=== PATIENT | female | born 1990 | race Caucasian/White ===

== ENCOUNTER 2023-02-21 08:36 | Outpatient (OUT) | payer OTHER, SELFPAY ==
--- NOTE | 2023-02-21 08:39 | US_ITS ---
[address] [address] Patient Name: DYAN BRIONES MRN: [id number] date: 1990 Sex: F Assigned Patient Location: US Current Patient Location: US Accession/Order Number: [id number] Exam Date: 02/21/2023 08:40 Report Date: 02/21/2023 17:57 At the request of: OSMANY KRUEGER Procedure: US OB >= 14 weeks Fetus PROCEDURE: US OB >= 14 weeks Fetus HISTORY: MISSED MENSES COMPARISON: None. TECHNIQUE: Transabdominal sonographic examination was performed for obstetrical and evaluation. FINDINGS: Number: 1 Heart Rate: 153.0 bpm H.B. /min Amniotic Fluid Volume: Subjectively normal Placental Location: Anterior BIOMETRY: BPD: 3.6 cm 17 weeks 1 days 43% HC: 13.8 cm 17 weeks 1 days , 34% AC:11.3 cm 17 weeks 1 days , 42% FL: 2.2 cm 16 weeks 5 days , 23% EFW: 174.7 grams , 6 ounces, 24% FL/AC: 19.8 FL/BPD: 61.3 HC/AC: 1.2 GESTATIONAL AGE: Age by EDC: 17 weeks 2 days MAIN by EDC: 07/30/2023 Ultrasound Age: 17 weeks 0 days Ultrasound MAIN: 08/01/2023 US/US OB >= 14 weeks Fetus IMPRESSION: Viable intrauterine gestation measuring 17 weeks 0 days *Reference: [facility] Practice Guideline for the performance of Obstetric Ultrasound Examinations, January 19, 2007. Electronically authenticated by: ROSEMARIE GARCIA Date: 02/21/2023 17:57
== END 2023-02-21 08:37 | disposition home or self-care (01) ==
LOC: US 08:36
PROVIDERS: Visit Provider Obstetrics & Gynecology
DX: Z34.92 Encounter for supervision of normal pregnancy, unspecified, second trimester (principal); N92.6 Irregular menstruation, unspecified; Z3A.17 17 weeks gestation of pregnancy
CPT/HCPCS: 76815

== ENCOUNTER 2024-06-01 08:52 | Outpatient (OUT) | payer OTHER, SELFPAY ==
[2024-06-01 09:15] LABS: Basophils Percent Auto 0.4 % (0.2-2.0); Eosinophils Absolute Auto 0.2 10^3/uL (0.0-0.7); Eosinophils Percent Auto 3.4 % (0.9-7.0); Hematocrit 44.4 % (36.0-48.0); Hemoglobin 14.3 g/dL (12.0-16.0); Lymphocytes Absolute Auto 1.7 10^3/uL (1.2-3.8); Lymphocytes Percent Auto 25.7 % (20.5-60.0); Mean Corpuscular HGB Conc 32.2 g/dL (29.9-35.2); Mean Corpuscular Hemoglobin 29.5 pg (26.7-34.0); Mean Corpuscular Volume 91.5 fL (81.0-99.0); Mean Platelet Volume 11.5 fL (9.5-13.5); Monocytes Absolute Auto 0.5 10^3/uL (0.3-0.8); Neutrophils Absolute Auto 4.3 10^3/uL (1.4-6.5); Neutrophils Percent Auto 63.5 % (43.0-75.0); Platelet Count 260 10^3/uL (150-450); Red Blood Count 4.85 10^6/uL (4.20-5.40); Red Cell Distribution Width 12.8 % (11.0-15.0); White Blood Count 6.7 10^3/uL (4.0-11.0)
--- OUTSIDE RECORDS SUMMARY | 2024-06-01 09:15 | XMS_ITS | CCD ---
Author Organization [facility] Care Team Providers Care Group Director Name Role Phone ZELONIS, ANIKA A Unavailable Unavailable BAAKLINI, CARLOTA Unavailable Unavailable DUMAIS, VALORIE Unavailable Unavailable ZELONIS, ANIKA A Unavailable Unavailable BAAKLINI, CARLOTA Unavailable Unavailable ZELONIS, ANIKA A Unavailable Unavailable BAAKLINI, CARLOTA Unavailable Unavailable ZELONIS, ANIKA A Unavailable Unavailable BAAKLINI, CARLOTA Unavailable Unavailable BAAKLINI, CARLOTA Unavailable Unavailable ZELONIS, ANIKA A Unavailable Unavailable BAAKLINI, CARLOTA Unavailable Unavailable ZELONIS, ANIKA A Unavailable Unavailable BAAKLINI, CARLOTA Unavailable Unavailable ZELONIS, ANIKA A Unavailable Unavailable BAAKLINI, CARLOTA Unavailable Unavailable ZELONIS, ANIKA A Unavailable Unavailable BAAKLINI, CARLOTA Unavailable Unavailable ZELONIS, ANIKA A Unavailable Unavailable BAAKLINI, CARLOTA Unavailable Unavailable LUCHETTI, JUMANA Unavailable Unavailable ZELONIS, ANIKA A Unavailable Unavailable BAAKLINI, CARLOTA Unavailable Unavailable ZELONIS, ANIKA A Unavailable Unavailable BAAKLINI, CARLOTA Unavailable Unavailable ZELONIS, ANIKA A Unavailable Unavailable Ross Woods Attending Unavailable Baaklini, Carlota C Primary Care Unavailable Baaklini, Carlota C Consulting Unavailable WillauwaAlessandroa Attending Unavailable No Family Physician Primary Care Unavailable No Family Physician Consulting Unavailable BACHUWA, ASTRID Admitting Unavailable WILLAUWA, ASTRID Attending Unavailable Baaklini, Carlota C Unavailable Unavailable Wendie Mcpherson Unavailable Unavailable Baaklini, Carlota C Unavailable Unavailable Donna Coronado Unavailable Unavailable Unavailable Unavailable Unavailable Raheel Quesada Unavailable Unavailable Baaklini, Carlota C Unavailable Unavailable Tata Cortez Unavailable Unavailab le Tata Cortez Unavailable Unavail able Donna Coronado Unavailable Unavailable Baaklini, Carlotajammie Cueto Unavailable Unavailab le Tata Cortez Unavailable Unavailable Unavailable Tata Cortez Unavailable Mabel Tuttle Unavailable Tata Cortez Unavailable Unavail able Ameena Sanchez Attending Unavailable Ameena Sanchez Referring Unavailable Dr. Tata Cortez Primary Care U navailable GENERIC PROVIDER, NO ASSIGNED PCP Primary Care Unavailable AMEENA SANCHEZ Referring Unavailable TATA CORTEZ Primary Care Unavail able Unavailable Primary Care Provider UnavailGORAN Ernst Attending Unavailable Allergies Allergy Classification Reported Allergen(s) Allergy Type Date of Onset Reaction(s) Facility Soy (9 sources) soybean Food Allergy Unknown [facility] [address] M Work Phone: Comment on above: cystic acne Unclassified (1 source) Dairy Products Other [facility] Comment on above: cystic acne (8 sources) Animal dander - Cats allergy to substance [facility] Work Phone: (6 sources) soybean allergy to substance [facility] [address] [facility] Work Phone: (14 sources) Dairy allergy to substance [facility] [address] [facility] Work Phone: (1 source) ALLERGIES NOT ON FILE; Translations: [ALLERGIES NOT ON FILE] Propensity to adverse reactions (disorder) [facility] Repository (3 sources) Lactase / Lactobacillus acidophilus Drug Allergy 2 [facility] (3 sources) Levonorgestrel-Et hinyl Estrad Drug Intolerance 5 [facility] (3 sources) Soybean-Containin g Drug Products Drug Intolerance 2 [facility] Medications Completed/Discontinued Medications Medication Drug Class(es) Dates Sig (Normalized) Sig (Original) Allergy TBCR (4 sources) Allergy TBCR Quantity: 0 Refills: 0 Ordered: 04-Jan-2019 DO Active Chlorpheniramine (1 source) Histamine-1 Receptor Antagonist Allergy TBCR Refills: 0 Active estradiol 0.1 mg/ml vaginal cream (1 source) Estrogen Start: 10-20-2020 Estradiol 0.1 MG/GM Vaginal Cream Insert 1 gram vaginally nightly x 2 weeks. Then insert 1 gram 2 nights per week thereafter. Quantity: 1 Refills: 0 Ordered: 20-Oct-2020 Magalis Hall MD Start : 20-Oct-2020 Active Magnesium (8 sources) Start: 03-31-2018 Magnesium 400 MG Oral Tablet Quantity: 0 Refills: 0 Ordered: 31-Mar-2018 DO Start : 31-Mar-2018 Active Start: 03-31-2018 Magnesium 400 MG Oral Tablet Refills: 0 Start : 31-Mar-2018 Active Complete 14-0.4 MG Oral Tablet (2 sources) Start: 04-22-2017 take 1 tablet by mouth once daily Complete 14-0.4 MG Oral Tablet TAKE 1 TABLET DAILY. Quantity: 30 Refills: 6 Carlota Clark MD Start : 22-Apr-2017 Active Complete 14-0.4 MG Oral Tablet (4 sources) Start: 04-22-2017 take 1 tablet by mouth once daily Complete 14-0.4 MG Oral Tablet TAKE 1 TABLET DAILY. Quantity: 30 Refills: 6 Ordered: 22-Apr-2017 Carlota Clark MD Start : 22-Apr-2017 Active MV-Min-Fe Fum-FA-DHA ( 1 PO) (3 sources) End: 05-27-2024 MV-Min-Fe Fum-FA-DHA ( 1 PO) Take by mouth. 05/27/2024 Discontinued MV-Min- Fe Fum-FA-DHA ( 1 PO) Take by mouth. Active Unspecified Medication (7 sources) Unspecified Medi cation Takes a variety of vitamin supplements Quantity: 0 Refills: 0 Ordered: 04-Jan-2019 DO Active Unspecified Medi cation Takes a variety of vitamin supplements Refills: 0 Active NEGATED: Highlighted row has not occurred!No Current Medications (1 source) No Current Medic ations Problems Active Problems Problem Classification Problem Date Documented Da te Episodic/Chronic Abdominal hernia (20 sources) Umbilical hernia; Translations: [Epigastric hernia] Episodic Abdominal pain (2 sources) Pain in female pelvis; Translations: [Pelvic and perineal pain] 05-27-2024 Episodic Acquired foot deformities (7 sources) Flat foot [pes planus] (acquired), right foot; Translations: [Acquired pes planus] Episodic Attention-deficit conduct and disruptive behavior disorders (1 source) Attention deficit hyperactivity disorder, predominantly inattentive type; Translations: [Attention deficit disorder without hyperactivity] Chronic Complications of surgical procedures or medical care (1 source) Stitch abscess; Translations: [Other postoperative infection] Episodic Contraceptive and procreative management (2 sources) General counseling on initiation of other contraceptive measures; Translations: [Contraceptives] Episodic Disorders usually diagnosed in infancy childhood or adolescence (7 sources) Other specified behavioral and emotional disorders with onset usually occurring in childhood and adolescence; Translations: [Attention deficit hyperactivity disorder, predominantly inattentive type] Chronic Malaise and fatigue (6 sources) Fatigue; Translations: [Other malaise and fatigue] Chronic Malaise and fatigue (1 source) Fatigue; Translations: [Chronic fatigue] Episodic Menopausal disorders (3 sources) Atrophic vaginitis; Translations: [Postmenopausal atrophic vaginitis] Chronic Menstrual disorders (4 sources) Irregular periods; Translations: [Irregular menstruation, unspecified] 05-27-2024 Chronic Other complications of ; puerperium affecting management of mother (2 sources) Unspecified disorders of ; Translations: [Unspecified disorders of ([facility])] Onset: 09-01-2023 Episodic Other connective tissue disease (8 sources) Foot pain; Translations: [Pain in limb] Episodic Other connective tissue disease (8 sources) Personal history of arthritis; Translations: [Arthritis] Episodic Other ear and sense organ disorders (1 source) Otalgia; Translations: [Otalgia] Episodic Other gastrointestinal disorders (7 sources) Chronic constipation; Translations: [Constipation, unspecified] Episodic Other lower respiratory disease (1 source) Cough; Translations: [Cough] Episodic Other non-traumatic joint disorders (8 sources) Hip pain; Translations: [Pain in joint, pelvic region and thigh] Episodic Other skin disorders (8 sources) Acne; Translations: [Other acne] Episodic Other skin disorders (14 sources) H/O: skin disorder; Translations: [Personal history of other infectious and parasitic diseases] Resolved: 11-22-2019 Episodic Comment on above: responding well to A ldactone from Dr Villarreal,cyber systems engineer; Other upper respiratory disease (8 sources) Allergic rhinitis; Translations: [Allergic rhinitis, cause unspecified] Chronic Other upper respiratory infections (1 source) Acute sinusitis; Translations: [Acute sinusitis] Episodic Prolonged (1 source) Gestation period, 41 weeks; Translations: [Post term , unspecified as to episode of care or not applicable] 09-21-2020 Episodic Residual codes; unclassified (1 source) H/O: Disorder; Translations: [History of acne] Episodic Residual codes; unclassified (7 sources) H/O: hemorrhage; Translations: [ with other poor obstetric history] Episodic Residual codes; unclassified (6 sources) History of headache; Translations: [Personal history of other specified diseases] Episodic Spondylosis; intervertebral disc disorders; other back problems (14 sources) Chronic low back pain; Translations: [Backache] Episodic Unclassified (2 sources) NORMAL PREG N91.1 [id number] Onset: 03-26-2018 Unclassified (2 sources) IOL 09-21-2020 Comment on above: IOL Unclassified (1 source) 41 weeks gestation of 09-21-2020 Urinary tract infections (1 source) Urinary tract infectious disease; Translations: [UTI (urinary tract infection)] Episodic Past or Other Problems Problem Classification Problem Date Documented Da te Episodic/Chronic Acquired foot deformities (1 source) Acquired pes planus; Translations: [Acquired pes planus of both feet] Asthma (8 sources) Extrinsic asthma, unspecified; Translations: [Extrinsic Asthma With Allergic Rhinitis] Resolved: 09-21-2012 Chronic Genitourinary congenital anomalies (7 sources) H/O: urinary anomaly; Translations: [Personal history of unspecified urinary disorder] Resolved: 11-22-2019 Episodic Genitourinary symptoms and ill-defined conditions (9 sources) Genitourinary tract hemorrhage; Translations: [Dysuria] Resolved: 11-22-2019 Episodic Immunizations and screening for infectious disease (6 sources) Patient encounter status; Translations: [Screening examination for venereal disease] Resolved: 11-22-2019 Episodic Other connective tissue disease (2 sources) Separation of muscle (nontraumatic), other site; Translations: [Separation of muscle (nontraumatic), other site] Onset: 11-12-2016 Episodic Other connective tissue disease (8 sources) Pain in toe; Translations: [Pain in limb] Resolved: 11-22-2019 Episodic Other female genital disorders (7 sources) Abnormal uterine bleeding; Translations: [Unspecified disorders of menstruation and other abnormal bleeding from female genital tract] Resolved: 11-22-2019 Chronic Other female genital disorders (7 sources) Vaginal discharge; Translations: [Other specified complications of , antepartum condition or complication] Resolved: 11-22-2019 Episodic Other gastrointestinal disorders (7 sources) Constipation; Translations: [Other current conditions classifiable elsewhere of mother, antepartum condition or complication] Resolved: 11-22-2019 Episodic Other lower respiratory disease (7 sources) H/O: respiratory disease; Translations: [Personal history of other diseases of respiratory system] Resolved: 11-22-2019 Episodic Comment on above: Added by Problem Giselle rk Sharlene; 2012-06-16; Moved to Suppressed Mar 13 2013 9:03PM; Other nervous system disorders (7 sources) H/O: ear disorder; Translations: [Personal history of other disorders of nervous system and sense organs] Resolved: 11-22-2019 Episodic Other and delivery including normal (12 sources) ; Translations: [ care status] Onset: 01-21-2023 Episodic Other skin disorders (8 sources) Skin lesion; Translations: [Unspecified disorder of skin and subcutaneous tissue] Resolved: 11-22-2019 Episodic Otitis media and related conditions (8 sources) Otitis media; Translations: [Unspecified otitis media] Resolved: 11-22-2019 Episodic Residual codes; unclassified (7 sources) H/O: ; Translations: [Personal history of other genital system and obstetric disorders] Resolved: 11-22-2019 Episodic Short gestation; low weight; and growth retardation (3 sources) Nxtks-qoc-vpaom baby; Translations: [ small for gestational age, unspecified weight] Onset: 05-05-2023 05-05-2023 Episodic Unclassified (2 sources) Patient encounter status; Translations: [Screening for STD (sexually transmitted disease)] Unclassified (2 sources) History of headache; Translations: [History of headache] Unclassified (7 sources) History of clinical finding in subject; Translations: [History of cough] Resolved: 11-22-2019 Unclassified (1 source) Mother currently breast-feeding; Translations: [Breast feeding status of mother] NEGATED: Highlighted row has not occurred!Residual codes; unclassified (13 sources) Disease Episodic Results Test Name Value Interpretation Reference Range Facility HCG ( test) Ql (U)o n 05-27-2024 Interpretation and review of laboratory results Normal [facility] Preg Test, Ur Negative Negative [facility] URINE CULTURE,BACTERIALon URINE CULTURE,BACTERIAL PATIENT: DYNA BRIONES LOCATION: [facility] BILL#: [id number] : 88 AGE: SEX: F ORDERED BY: AMEENA SANCHEZ SOURCE: URINE COLLECTED: 01/08/23 15:25 ANTIBIOTICS AT DAILY.: RECEIVED : 01/09/23 09:55 SITE: Unspecified R E S U L T S URINE CULTURE,BACTERIAL FINAL 01/10/23 08:35 NO SIGNIFICANT GROWTH. Normal [facility] Comment on above: Performed By: #### U [facility] #### [facility] [address] [place] [address] Follow Up (General Surgery)o n 11-05-2021 Follow Up (General Surgery) Diagnoses/Problems Postoperative stitch abscess (998.59) (T81.41XA) Orders Postoperative stitch abscess Follow-up PRN Outpatient Follow-up Status: Active Requested for: [id number] Ordered Stat;For: Postoperative stitch abscess; Ordered By: Raheel Quesada Performed: Due: [id number] Patient Discussion/Summary Dyan Briones is a 31F with s/p open incarcerated epigastric hernia repair 07/11/17 presenting to clinic for incisional pain. Stitch abscess found on exam and Prolene stitch removed using local anesthetic. Patient tolerated the procedure well. Patient advised to return to office if she has another abscess or if there are any signs of Infection. Patient discussed and seen with Dr. Quesada. Adriane Greenberg, MS4 Provider Impressions Dyan Briones is a 31F with s/p open incarcerated epigastric hernia repair 07/11/17 presenting to clinic for incisional pain. Stitch abscess found on exam and Prolene stitch removed using local anesthetic. Patient tolerated the procedure well. Patient advised to return to office if she has another abscess or if there are any signs of Infection. Patient discussed and seen with Dr. Quesada. Adriane Greenberg, MS4 History of Present Illness Dyan Briones is a 31F with s/p open incarcerated epigastric hernia repair 07/11/17 presenting to clinic for incisional pain. She had a stitch abscess in 2018 that was removed in office. She had another abscess in 2020 while 8 mos with attempted removal but unable to due to discomfort. The abscess is painful when touched, minimal discharge, no warmth, no skin changes. She denies fever. Active Problems Acne (706.1) (L70.9) Acquired pes planus of both feet (734) (M21.41,M21.42) Allergic rhinitis (477.9) (J30.9) Attention deficit disorder without hyperactivity (314.00) (F98.8) Back pain (724.5) (M54.9) Chronic constipation (564.00) (K59.09) Chronic fatigue (780.79) (R53.82) Chronic low back pain (724.2,338.29) (M54.50,G89.29) Epigastric hernia (553.29) (K43.9) Foot pain, bilateral (729.5) (M79.671,M79.672) Hernia, umbilical (553.1) (K42.9) Hip pain, chronic (719.45,338.29) (M25.559,G89.29) History of hemorrhage, currently in third trimester (V23.49) (O09.293) care (V22.1) (Z34.90) Umbilical hernia without obstruction and without gangrene (553.1) (K42.9) Vaginitis, atrophic (627.3) (N95.2) Past Medical History History of Abnormal uterine and vaginal bleeding (626.9) (N93.9) Resolved Date: 22 Nov 2019 History of Arthritis (V13.4) History of Chronic pain of toes of both feet (729.5,338.29) (M79.674,M79.675,G89.29) Resolved Date: 22 Nov 2019 History of Constipation during in third trimester (648.93,564.00) (O99.613,K59.00) Resolved Date: 22 Nov 2019 History of Extrinsic Asthma With Allergic Rhinitis (493.00) Resolved Date: 21 Sep 2012 History of acne (V13.3) (Z87.2) responding well to Aldactone from Dr Villarreal,cyber systems engineer History of acute sinusitis (V12.69) (Z87.09) Resolved Date: 22 Nov 2019 Added by Problem List Migration; 2012-06-16; Moved to [facility] Mar 13 2013 9:03PM History of cough Resolved Date: 22 Nov 2019 History of dysuria (V13.00) (Z87.898) Resolved Date: 22 Nov 2019 History of ear pain (V12.49) (Z86.69) Resolved Date: 22 Nov 2019 History of headache (V13.89) (Z87.898) History of (V13.29) Resolved Date: 22 Nov 2019 History of tinea corporis (V12.09) (Z86.19) Resolved Date: 22 Nov 2019 History of urinary tract infection (V13.02) (Z87.440) Resolved Date: 22 Nov 2019 History of Otitis media of right ear (382.9) (H66.91) Resolved Date: 22 Nov 2019 History of Screening for STD (sexually transmitted disease) (V74.5) (Z11.3) Resolved Date: 22 Nov 2019 History of Skin lesion (709.9) (L98.9) Resolved Date: 22 Nov 2019 History of Vaginal discharge during in third trimester (646.83,623.5) (O26.893,N89.8) Resolved Date: 22 Nov 2019 Surgical History History of Umbilical Hernia Repair Family History Family history of Leukemia (V16.6) Family history of Diabetes Mellitus (V18.0) Family history of Leukemia (V16.6) Family history of Urinary Tract Infection Social History Former smoker (V15.82) (Z87.891) No illicit drug use Occasional alcohol use Occupation: [employer] Allergies No Known Drug Allergies Recorded By: Rosalia Bonilla; 07/01/2012 8:56:52 AM Animal dander - Cats Recorded By: Rosalia Bonilla; 07/01/2012 8:56:52 AM Dairy Recorded By: Claudia Gant; 11/22/2019 1:26:50 PM Dairy Recorded By: Opal Christopher; 01/04/2019 2:09:50 PM Soy Recorded By: Claudia Gant; 11/22/2019 1:26:50 PM Soy Recorded By: Opal Christopher; 01/04/2019 2:09:50 PM Current Meds Medication NameInstruction Allergy TBCR Estradiol 0.1 MG/GM Vaginal CreamInsert 1 gram vaginally nightly x 2 weeks. Then insert 1 gram 2 nights per week thereafter. Magnesium 400 MG Oral Tablet Complete 14-0.4 MG Or (more content not included)... Normal [employer] Tobacco Screening.on 022 Fall risk assessment a) No falls within the last year [facility] Work Phone: Tobacco use status [facility]PH[facility] b) No [facility] Work Phone: Blood Pressure Cuff Sizeon 0 11-03-2020 Blood Pressure Cuff Size Adult UK-OAHU-BSNP [place] [address] M Work Phone: No Panel Informationon 11-03 Never IQ-YCLE-IOPS [place] [address] M Work Phone: Not depressed MP-WSPC-WSW H [place] [address] M Work Phone: 2 1 XI-UNFL-GFLV [place] [address] M Work Phone: Comment on above: Q1: As much as I alw ays couldQ2: As much as I ever didQ3: No, neverQ4: Hardly everQ5: No, not muchQ6: No, I have been coping as well as everQ7: No, not at allQ8: No, not all allQ9: No, [id number]: Never LMPon 10-19-2020 Last menstrual period start date VY-PDFA-HGSQ [place] [address] M Work Phone: No Panel Informationon 10-19 Never LM-YOYT-AUMZ [place] [address] M Work Phone: Not depressed MP-[facility] [place] [address] M Work Phone: 0 1 MR-XHSP-DZNRJESSICA [place] [address] M Work Phone: Comment on above: Q1: As much as I alw ays couldQ2: As much as I ever didQ3: No, neverQ4: No, not at allQ5: No, not at allQ6: No, I have been coping as well as everQ7: No, not at allQ8: No, not all allQ9: No, [id number]: Never Coronavirus 2019 RNA by PCR, Screening Asymptomticon 09-21-2020 Coronavirus 2019 RNA by PCR, Screening Asymptomtic Not detected Normal See Below [place] [address] M Work Phone: Comment on above: SOURCE: Nasal, Nasop haryngealReference Range: Not Detected.This assay is designed to detect the RdRp gene of SARS-CoV-2 via nucleic acid amplification. A Not Detected result does not preclude COVID-19 infection since the adequacy of sample collection and/or low viral burden may result in presence of viral nucleic acids below the clinical sensitivity of this test method. Fact sheet for providers: www.fda.gov/media/145968/downloadFact sheet for patients: www.fda.gov/media/022891/downloadThis test has received FDA Emergency Use Authorization (EUA) and has been verified by [facility]. This test is only authorized for the duration of time that circumstances exist to justify the authorization of the emergency use of in vitro diagnostic tests for the detection of SARS-CoV-2 virus and/or diagnosis of COVID-19 infection under section 564(b)(1) of the Act, 21 U.S.C. 360bbb-3(b)(1), unless the authorization is terminated or revoked sooner. [facility] is certified under CLIA-88 as qualified to perform high complexity testing. Testing is performed in the [facility] laboratory located at [address] [place] [address]. Laboratory - Blood bankon ABO group Nom (Bld) [place] [id number] Work Phone: Blood group antibody screen Ql Negative [address] Work Phone: Rh immune globulin screen (Bld) [Interp] Positive [address] Work Phone: Laboratory - Hematology and Cell countson 09-21-2020 Erythrocyte distribution width (RBC) [Ratio] 13.6 % See Below [place] [id number] Work Phone: Comment on above: Reference Range: 11. 5 - 14.5 Hematocrit (Bld) [Volume fraction] 41.6 % See Below [place] [id number] Work Phone: Comment on above: Reference Range: 36. 0 - 46.0 Hemoglobin (Bld) [Mass/Vol] 13.7 g/dL See Below [address] Work Phone: Comment on above: Reference Range: 12. 0 - 16.0 MCHC (RBC) [Mass/Vol] 32.9 g/dL See Below [place] [id number] Work Phone: Comment on above: Reference Range: 32. 0 - 36.0 MCV (RBC) [Entitic vol] 92 fL 80 - 100 [place] [id number] Work Phone: Platelets (Bld) [#/Vol] 185 10*3/uL 150 - 450 [place] [id number] Work Phone: RBC (Bld) [#/Vol] 4.51 {x10E12/L} See Below [place] [id number] Work Phone: Comment on above: Reference Range: 4.0 0 - 5.20 WBC (Bld) [#/Vol] 8.1 10*3/uL 4.4 - 11.3 -[facility] [place] [address] M Work Phone: No Panel Informationon 09-21 ORDER RECD ZK-AKCU-PPCA [place] [address] Work Phone: 0.0 {/100_WBC} 0.0 - 0.0 [facility] [place] [address] Work Phone: SYPHILIS SCREENING WITH REFL EXon 09-21-2020 T. pallidum IgG+IgM IA Ql (S) Non-Reactive See Below XN-XEAE-ZICV [place] [address] Work Phone: Comment on above: SOURCE: Reference Ra nge: NONREACTIVENo significant level of Treponema pallidum antibody detected. Repeat testing in 2 to 4 weeks may be considered if early infection or incubating syphilis infection is suspected. Blood Pressure Cuff Sizeon 0 09-19-2020 Blood Pressure Cuff Size Adult [facility] [place] [address] Work Phone: No Panel Informationon 09-15 Normal [facility] [place] [address] Work Phone: Blood Pressure Cuff Sizeon 0 09-11-2020 Blood Pressure Cuff Size Adult [facility] [place] [address] Work Phone: Blood Pressure Cuff Sizeon 0 09-06-2020 Blood Pressure Cuff Size Adult [facility] [place] [address] Work Phone: CNPNon 09-06-2020 [facility] Telephone ([id number]) -- DYAN BRIONES ([id number]) 1990 F Date Time Provider Department 09/06/20 ASTRID GARZA [id number] During your visit today, we recorded the following information about you: Bryant Weiss 09/06/2020 5:03 PM Signed Pt transferred care. Please bill out her visits to the insurance we have on file. Astrid Garza MD 09/21/2020 1:59 PM Signed Please apply prepay to 08/22. Make sure to deduct $50 for a no show and put note in open pm in case she asks. Bernadette Summers 09/26/2020 9:28 AM Signed done Allergies As of Date: 09/06/2020 Noted Allergy Reaction SEASONALE (LEVONORGESTREL-ETHINYL* Date Reviewed: 02/02/2020 Reviewed by: Bernadette Summers - Fully Assessed Reason for Visit: Patient Update [1234] Prescriptions as of 07/20/2021 - blood sugar diagnostic (BLOOD GLUCOSE TEST) test strip Test sugars QID - Blood-Glucose Meter Check sugars QID - Lancets lancets Test sugars QID - Magnesium 30 mg tablet Take 30 mg by mouth twice daily. - calcium carbonate (CALCIUM 300 ORAL) Take by mouth. - PNV Cmb#60-Zpdb-Cicxe Acid ( COMPLETE) 14 mg iron- 400 mcg tab Take by mouth q 24 HR. - ZYRTEC 10 MG TAB Problem List As Of Date: 09/06/2020 (None) Encounter Status:Closed by BRYANT WEISS on 07/20/21 Normal [facility] Blood Pressure Cuff Sizeon 0 08-29-2020 Blood Pressure Cuff Size [facility] [address] [facility] Work Phone: SPINE, LUMBOSACRAL MIN 4 VIE WSon 12-20-2019 SPINE, LUMBOSACRAL MIN 4 VIEWS Patient Name: DYAN BRIONES STUDY: SPINE, LUMBOSACRAL MIN 4 VIEWS; SPINE, THORACIC, 3 VIEWS; ; 12/20/2019 9:25 am INDICATION: back pain x months, no acute injury. COMPARISON: 05/09/2017 ACCESSION NUMBER(S): [id number]; [id number] ORDERING CLINICIAN: TATA JAIMES FINDINGS: Lumbar spine: Gentle levo curve. No apparent fracture or malalignment detected. No apparent neural foraminal narrowing. Thoracic spine: No fracture. No malalignment. Vertebral body heights and disc spaces are maintained. IMPRESSION: No radiographic correlate seen to explain symptoms. Overall similar appearance of the lumbar exam to prior exams. Electronically signed by: ANGEL MORFIN MD Normal [facility] SPINE, THORACIC, 3 VIEWSon 0 12-20-2019 SPINE, THORACIC, 3 VIEWS Patient Name: DYAN BRIONES STUDY: SPINE, LUMBOSACRAL MIN 4 VIEWS; SPINE, THORACIC, 3 VIEWS; ; 12/20/2019 9:25 am INDICATION: back pain x months, no acute injury. COMPARISON: 05/09/2017 ACCESSION NUMBER(S): [id number]; [id number] ORDERING CLINICIAN: TATA JAIMES FINDINGS: Lumbar spine: Gentle levo curve. No apparent fracture or malalignment detected. No apparent neural foraminal narrowing. Thoracic spine: No fracture. No malalignment. Vertebral body heights and disc spaces are maintained. IMPRESSION: No radiographic correlate seen to explain symptoms. Overall similar appearance of the lumbar exam to prior exams. Electronically signed by: AGNEL MORFIN MD Normal [facility] Follow Up (General Surgery)o n 01-04-2019 Follow Up (General Surgery) Diagnoses/Problems Hernia, umbilical (553.1) (K42.9) Orders Hernia, umbilical Follow-up visit in 3 months Outpatient Follow-up Status: Hold For - Scheduling Requested for: [id number] Ordered Stat;For: Hernia, umbilical; Ordered By: Raheel Quesada Performed: Due: [id number] Patient Discussion/Summary Patient has a small fingertip umbilical hernia defect most likely related to her recent from which she is 2 months . There is no evidence of epigastric hernia repair recurrence. I recommended she resume full activities and I will see her in follow-up in 3-6 months up. If there is persistent hernia defect at that time we will discuss operative intervention. She will be seen in follow-up in 3-6 months. Provider Impressions Patient has a small fingertip umbilical hernia defect most likely related to her recent from which she is 2 months . There is no evidence of epigastric hernia repair recurrence. I recommended she resume full activities and I will see her in follow-up in 3-6 months up. If there is persistent hernia defect at that time we will discuss operative intervention. She will be seen in follow-up in 3-6 months. Chief Complaint FUV History of Present Illness Ms. Briones is here today for follow-up. She is s/p open incarcerated epigastric hernia repair with primary closure on 07/16/17. She reports abdominal discomfort in the same area as the prior hernia. The pain began 2 months ago after she delivered her baby. She is concerned that she has a hernia recurrence. She denies nausea, vomiting. She reports episodes of constipation since having her baby. Review of Systems Constitutional: no fever, no chills, no recent weight gain and no recent weight loss. Eyes: no loss of vision, no discharge from the eyes and no itching of the eyes. ENT: no hearing loss, no neck pain and no hoarseness. Cardiovascular: no chest pain, no palpitations and no lower extremity edema. Respiratory: no dyspnea, no dyspnea during exertion and no cough. Breast: no nipple discharge, no breast mass and no pain in breast. Gastrointestinal: abdominal pain, constipation, but no heartburn, no vomiting, no blood in stools, bowel movement frequency normal. Genitourinary: no dysuria, no hematuria and no vaginal discharge. Musculoskeletal: no arthralgias, no myalgias and no hernia. Integumentary: no rashes and no skin lesions. Neurological: no headache, no dizziness, no numbness, no tingling and no limb weakness. Psychiatric: no anxiety, no depression and no emotional problems. Endocrine: no heat or cold intolerance and no increased thirst. Hematologic/Lymphatic: no swollen glands, no tendency for easy bleeding and no tendency for easy bruising. All other systems have been reviewed and are negative for complaint. Allergies No Known Drug Allergies Recorded By: Opal Christopher; 01/04/2019 2:09:50 PM Dairy Recorded By: Opal Christopher; 01/04/2019 2:09:50 PM Soy Recorded By: Opal Christopher; 01/04/2019 2:09:50 PM Current Meds Medication NameInstruction Allergy TBCR Unspecified MedicationTakes a variety of vitamin supplements Vitals Vital Signs Recorded: [id number] 02:08PM Klyswlonigo68.8 F Heart Rate64 Ofpalngb139 Hctuniivf46 Height5 ft 3 in Kiurdq800 lb BMI Yvqioqywea18.58 BSA Calculated1.79 Physical Exam Patient appears in no apparent distress. She is afebrile with stable vital signs. Abdomen is soft nontender nondistended. Her incision is well-healed. There is a fingertip protrusion in the umbilicus consistent with a umbilical hernia. There is no appreciable super umbilical hernia defect. The Prolene sutures from her prior epigastric hernia repair are palpable under the skin. There is no overlying erythema, ecchymosis, or drainage. Signatures Electronically signed by : Raheel Quesada MD; Jan 04 2019 4:32PM EST (Author) Normal [facility] Daily Progress Note - OB-Ant enatal Testingon 12-01-2018 Daily Progress Note - OB- Testing Current Stage: Stage: Testing Assessment and Plan: Assessment: Late entry Pt had NST on 10/28. Recording the result now. 135, mod maira, +accels, no decels. Reactive NST. [place] quiet Electronic Signatures: Ruben Feng) (Signed 01-Dec-2018 09:05) Authored: Current Stage, Objective Data, Assessment and Plan, Signature/Cosignature/Atte station Last Updated: 01-Dec-2018 09:05 by Ruben Feng) Normal [facility] BACTERIAL VAGINOSIS PANELon 08-20-2018 TERE SPECIES Not Detected Normal Not Detected [facility] Comment on above: Result Comment: NOT DETECTED BY DNA PROBE Performed By: #### V AG #### [address] [address] GARDNERELLA VAGINALIS Not Detected Normal Not Detected [facility] Comment on above: Result Comment: NOT DETECTED BY DNA PROBE Performed By: #### V AG #### [address] [address] TRICHOMONAS VAGINALIS Not Detected Normal Not Detected [facility] Comment on above: Result Comment: NOT DETECTED BY DNA PROBE Performed By: #### V AG #### [address] [address] Bacterial Vaginosis Panelon 08-19-2018 Tere sp rRNA Probe Ql (Vag fld) Not Detected See Below [facility] Work Phone: Comment on above: Reference Range: Not DetectedNOT DETECTED BY DNA PROBE T. vaginalis rRNA Probe Ql (Genital specimen) Not Detected See Below [facility] Work Phone: Comment on above: Reference Range: Not DetectedNOT DETECTED BY DNA PROBE RUBELLA AB QUAL,IGGon 2018 RUBELLA AB IGG 0.93 index Low Immune>0.99 [facility] Comment on above: Result Comment: A se cond sample should be collected and tested no less than 2-4 weeks. Non-immune <0.90 Equivocal 0.90 - 0.99 Immune >0.99 [facility];[address] [place] [address];Lab ;Dir ctor: Abel Resendiz, PhD Performed By: #### L RUBGAB #### [facility] [address] HEMOGLOBIN A1C GLYCOHGBon eAG 91.1 mg/dL Normal [facility] Comment on above: Result Comment: eAG: (Estimated Average Glucose) is a calculated value from HgbA1c and is physician relations representative of the average blood glucose level in the last 2-3 month period. Performed By: #### L GHB #### [facility] [address] [place] [address] Hemoglobin A1c/Hemoglobin.to hitesh mass fraction (Bld) 4.8 % Normal 4.3-6.1 [facility] Comment on above: Performed By: #### L GHB #### [facility] [id number] [place] [address] HEP B s AG EIAon 04-29-2018 HEP B SURF AG NONREACTIVE Normal NONREACTIVE [facility] Comment on above: Result Comment: Luzma ents receiving more than 5 mg/day of biotin may have interference in test results. A sample should be taken no sooner than eight hours after previous dose. Contact [phone] for additional information. Performed at: [facility] - [address] [place] [address] Performed By: #### L HBSAG #### [facility] [address] [place] [address] RPR QUALon 04-29-2018 Reagin Ab RPR Ql (S) Non Reactive Normal NonReactive [facility] Comment on above: Result Comment: [facility];[address] [place] [address];Lab ;Dir ctor: Abel Resendiz, PhD Performed By: #### L RPR #### [facility] [address] [place] [address] RUBEOLA IGGon 04-29-2018 RUBEOLA IGG AB 125.0 AU/mL Normal Immune>29.9 [facility] Comment on above: Result Comment: Nega tive <25.0 Equivocal 25.0 - 29.9 Positive >29.9 Presence of antibodies to Rubeola is presumptive evidence of immunity except when acute infection is suspected. [facility];[address] [place] [address];Lab ;Dir ctor: Abel Resendiz, PhD Performed By: #### L RUBEOG, LVARG #### [facility] [address] [place] [address] VARIC ZOSTER IGGon 9 V ZOSTER IGG AB 2679 index Normal Immune>165 [facility] Comment on above: Result Comment: Nega tive <135 Equivocal 135 - 165 Positive >165 A positive result generally indicates exposure to the pathogen or administration of specific immunoglobulins, but it is not indication of active infection or stage of disease. Performed By: #### L RUBEOG, LVARG #### [facility] [address] [place] [address] CBC PLATELET AUTO DIFFon BASO ABS 0.02 K/uL Normal 0-0.20 [facility] Comment on above: Performed By: #### L CBCD #### [facility] [address] [place] [address] Basophils/100 WBC (Bld) 0.2 % Normal [facility] Comment on above: Performed By: #### L CBCD #### [facility] [address] [place] [address] EOS ABS 0.11 K/uL Normal 0.10-0.30 [facility] Comment on above: Performed By: #### L CBCD #### [facility] [address] [place], [place] [address] Eosinophils/100 WBC (Bld) 1.3 % Normal [facility] Comment on above: Performed By: #### L CBCD #### [facility] [address] [place], [place] [address] Erythrocyte distribution width Ratio (RBC) 12.2 % Normal 11.5-14.5 [facility] Comment on above: Performed By: #### L CBCD #### [place] [address] Hematocrit Volume Fraction (Bld) 42.0 % Normal 36.0-48.0 [facility] Comment on above: Performed By: #### L CBCD #### [facility] [address] [place] [address] Hemoglobin mass conc (Bld) 14.3 g/dL Normal 12.0-15.0 [facility] Comment on above: Performed By: #### L CBCD #### [place] [address] IG % 0.2 % Normal [facility] Comment on above: Performed By: #### L CBCD #### [place] [address] IG ABS 0.02 K/uL Normal [facility] Comment on above: Performed By: #### L CBCD #### [facility] [address] [place] [address] Lymphocytes #/vol (Bld) 1.69 10*3/uL Normal 1.2-4.0 [facility] Comment on above: Performed By: #### L CBCD #### [facility] [address] [place] [address] Lymphocytes/100 WBC (Bld) 19.4 % Normal [facility] Comment on above: Performed By: #### L CBCD #### [facility] [address] [place], [place] [address] MCH Entitic mass (RBC) 30.8 pg Normal 25.4-34.6 [facility] Comment on above: Performed By: #### L CBCD #### [facility] [address] [place] [address] MCHC mass conc (RBC) 34.0 g/dL Normal 30.0-36.0 [facility] Comment on above: Performed By: #### L CBCD #### [facility] [address] [place] [address] MCV Entitic volume (RBC) 90.3 fL Normal 79.0-98.0 [facility] Comment on above: Performed By: #### L CBCD #### [facility] [address] [place] [address] MONO ABS 0.43 K/uL Normal 0-1.00 [facility] Comment on above: Performed By: #### L CBCD #### [facility] [address] [place], [place] [address] Monocytes/100 WBC (Bld) 4.9 % Normal [facility] Comment on above: Performed By: #### L CBCD #### [facility] [address] [place] [address] NEUT ABS 6.45 K/uL Normal 1.9-8.0 [facility] Comment on above: Performed By: #### L CBCD #### [facility] [address] [place], [place] [address] Neutrophils/100 WBC (Bld) 74.0 % Normal [facility] Comment on above: Performed By: #### L CBCD #### [facility] [address] [place] [address] Nucleated RBC #/vol (Bld) 0.00 10*3/uL Normal [facility] Comment on above: Performed By: #### L CBCD #### [facility] [address] [place] [address] Nucleated RBC/100 WBC Ratio (Bld) 0.0 /100 WBC Normal 0 [facility] Comment on above: Performed By: #### L CBCD #### [facility] [address] [place] [address] Platelet mean volume Entitic volume (Bld) 12.3 fL High 8.4-11.9 [facility] Comment on above: Performed By: #### L CBCD #### [facility] [address] [place] [address] Platelets #/vol (Bld) 231 10*3/uL Normal 140-440 [facility] Comment on above: Performed By: #### L CBCD #### [facility] [address] [place] [address] RBC #/vol (Bld) 4.65 10*6/uL Normal 3.5-5.5 [facility] Comment on above: Performed By: #### L CBCD #### [facility] [address] [place] [address] WBC #/vol (Bld) 8.7 10*3/uL Normal 3.9-11.0 [facility] Comment on above: Performed By: #### L CBCD #### [facility] [address] [place] [address] GLUCOSE BLD QUANTon 04-28-19 19 Glucose mass conc 112 mg/dL High 74-99 [facility] Comment on above: Order Comment: Is pa tient fasting? NO Performed By: #### L GLU #### [facility] [address] [place] [address] TYPE AND SCREENon 04-28-2018 ABO and Rh group Nom (Bld) O POSITIVE Normal [facility] Comment on above: Order Comment: Blood Bank Service Requested: TYPE AND SCREEN Is patient taking DES? Has patient had a transplant? Performed By: #### B TS #### [facility] [address] [place] [address] GRAVID PREG <14 WK/TRANSVAG OBon 03-26-2018 GRAVID PREG <14 WK/TRANSVAG OB STUDY: GRAVID PREG <14 WK/TRANSVAG OB 03/26/2018 1:40 pm INDICATION: 28 y/o F with AMENORRHEA SECONDARY. LMP: Unknown. COMPARISON: None. ACCESSION NUMBER(S): [id number] ORDERING CLINICIAN: Ross Woods TECHNIQUE: Routine ultrasound of the pelvis was performed. Evaluation of the female pelvis was performed by transabdominal and subsequent transvaginal technique. Static images were obtained for remote interpretation. FINDINGS: UTERUS AND GESTATIONAL SAC: There is a single intrauterine as evidenced by a gestational sac containing a pole and yolk sac. The average crown-rump length is measured at 2.88 cm which corresponds to an estimated gestational age of 9 weeks and 5 day(s) +/- 1 week. Doppler imaging demonstrates a heart rate of 171 beats per minute. No sizable subchorionic hemorrhage is seen. RIGHT OVARY: Not identified on the transabdominal or transvaginal scans by the director of restaurant. LEFT OVARY: Not identified on the transabdominal or transvaginal scans by the director of restaurant. FREE FLUID: None. IMPRESSION: Single live intrauterine with an estimated gestational age of 9 weeks and 5 day(s) +/- 1 week. Normal [facility] Vital Signs Date Time Vital Sign Value Performing Clinician Facility 05-27-2024 10:20-0500 Body weight 72.94 kg [employer] Work Phone: [facility] 05-27-2024 10:20-0500 Diastolic blood pressure 64 mm[Hg] [facility] Work Phone: [facility] 05-27-2024 10:20-0500 Systolic blood pressure 100 mm[Hg] [facility] Work Phone: [facility] 11-05-2021 11:15-0400 Body mass index (BMI) [Ratio] 25.64 kg/m2 [facility] Work Phone: 11-05-2021 11:15-0400 Body surface area Derived from formula 1.73 m2 [facility] Work Phone: 11-05-2021 11:15-0400 Body temperature 96.9 [degF] [facility] Work Phone: 11-05-2021 11:15-0400 Body weight 67.76 kg [facility] Work Phone: 11-05-2021 11:15-0400 Diastolic blood pressure 70 mm[Hg] [facility] Work Phone: 11-05-2021 11:15-0400 Heart rate 69 /min Tata A [facility] Work Phone: 11-05-2021 11:15-0400 Systolic blood pressure 102 mm[Hg] Tata A [facility] Work Phone: 11-05-2021 11:15-0400 7 1 Tata A [facility] Work Phone: Comment on above: [facility] 11-03-2020 13:41-0400 Body height 162.56 cm Tata Noe [facility] Work Phone: OK-YCOK-RDQH Araceli [address] M Work Phone: 11-03-2020 13:41-0400 Body mass index (BMI) [Ratio] 26.82 kg/m2 Tata Noe [facility] Work Phone: RK-NSKH-BAEO [place] [address] M Work Phone: 11-03-2020 13:41-0400 Body surface area Derived from formula 1.76 m2 Tata Noe [facility] Work Phone: DZ-LEWS-PTWO Araceli [address] M Work Phone: 11-03-2020 13:41-0400 Body temperature 96.9 [degF] [facility] Work [facility]: GN-ZSXR-UIUS [place] [address] M Work Phone: 11-03-2020 13:41-0400 Body weight 70.88 kg Tata Noe Guillory [facility] Work Phone: YT-WSSJ-UWXR Araceli [address] M Work Phone: 11-03-2020 13:41-0400 Diastolic blood pressure 62 mm[Hg] [facility] Work Phone: DX-ONMT-BMNW [place] [address] M Work Phone: 11-03-2020 13:41-0400 Systolic blood pressure 90 mm[Hg] Tata [facility]illap Work Phone: GT-LZVQ-SXMD [place] [address] M Work Phone: 11-03-2020 13:41-0400 4 1 Tata Soliman Work Phone: VW-FHGN-PRXP [place] [address] M Work Phone: Comment on above: GRAV 11-03-2020 13:41-0400 3 1 Tata Soliman Work Phone: WT-XJXK-OMUT [place] [address] M Work Phone: Comment on above: PARA 11-03-2020 13:41-0400 0 1 Tata Soliman Work Phone: LR-EWKD-SFUS [place] [address] M Work Phone: Comment on above: [facility] 10-19-2020 09:32-0400 Body height 162.56 cm Tata Soliman Work Phone: UR-OZCB-NGWJ [place] [address] M Work Phone: 10-19-2020 09:32-0400 Body mass index (BMI) [Ratio] 26.67 kg/m2 Tata Soliman Work Phone: YX-IICV-PXDU [place] [address] M Work Phone: 10-19-2020 09:32-0400 Body surface area Derived from formula 1.76 m2 Tata Montillap Work Phone: NU-TAEI-DMWM [place] [address] M Work Phone: 10-19-2020 09:32-0400 Body temperature 97.2 [degF] Tata [employer]ill[employer] Work Phone: JN-WAIW-NTQS [place] [address] M Work Phone: 10-19-2020 09:32-0400 Body weight 70.48 kg Tata Montillap Work Phone: YA-JTRD-QXCA [place] [address] M Work Phone: 10-19-2020 09:32-0400 Diastolic blood pressure 70 mm[Hg] Tata Montillap Work Phone: NU-CPNN-TRHS [place] [address] M Work Phone: 10-19-2020 09:32-0400 Systolic blood pressure 118 mm[Hg] Tata Montillap Work Phone: WA-MHRX-TWGX [place] [address] M Work Phone: 10-19-2020 09:32-0400 0 1 Tata Montillap Work Phone: QB-TERC-HJYX [place] [address] M Work Phone: Comment on above: [facility] 09-19-2020 09:26-0400 Body height 162.56 cm Tata Montillap Work Phone: JE-NFVW-RDYY Araceli [address]745 M Work Phone: 09-19-2020 09:26-0400 Body mass index (BMI) [Ratio] 30.38 kg/m2 Tata Montillap Work Phone: HO-QEIN-XJLP [place] [address] M Work Phone: 09-19-2020 09:26-0400 Body surface area Derived from formula 1.86 m2 Tata Montill[employer] Work Phone: JE-VXCF-TEBU [place] [address] M Work Phone: 09-19-2020 09:26-0400 Body temperature 97.8 [degF] Tata A Kahlil Soliman Work Phone: BL-WZUO-EJNM [place] [address] M Work Phone: 09-19-2020 09:26-0400 Body weight 80.29 kg Tata Hasmukh Kahlil Soliman Work Phone: NL-HQQY-HUCH [place] [address] M Work Phone: 09-19-2020 09:26-0400 Diastolic blood pressure 58 mm[Hg] Tata Soliman Work Phone: RI-SQLZ-BYEV [place] [address]75[address] M Work Phone: 09-19-2020 09:26-0400 Systolic blood pressure 100 mm[Hg] Tata Montillap Work Phone: MI-VQZV-RHRY [place] [address] M Work Phone: 09-19-2020 09:26-0400 4 1 Tata Hasmukh Kahlil Soliman Work Phone: CT-VBZE-YCME [place] [address]39[address] M Work Phone: Comment on above: GRAV 09-19-2020 09:26-0400 2 1 Tata Soliman Work Phone: AX-UKKR-DROG [place] [address] M Work Phone: Comment on above: PARA 09-19-2020 09:26-0400 0 1 Tata Montillap Work Phone: YH-XADN-SLPS [place] [address]16[address] M Work Phone: Comment on above: [facility] 09-15-2020 11:38-0400 Body height 162.56 cm Tata Soliman Work Phone: UA-HXLY-VCKE [place] [address] M Work Phone: 09-15-2020 11:38-0400 Body mass index (BMI) [Ratio] 30.21 kg/m2 Tata Soliman Work Phone: RO-JLOP-YRCL [place] 47[address] M Work Phone: 09-15-2020 11:38-0400 Body surface area Derived from formula 1.85 m2 Tata Soliman Work Phone: RM-TOZF-NLCC [place] [address] M Work Phone: 09-15-2020 11:38-0400 Body temperature 95.9 [degF] Tata Soliman Work Phone: UR-AUPV-EXEQ [place] 440[address] M Work Phone: 09-15-2020 11:38-0400 Body weight 79.83 kg Tata Soliman Work Phone: BK-TJRX-OIDE [place] 734[address] M Work Phone: 09-15-2020 11:38-0400 Diastolic blood pressure 60 mm[Hg] Tata Soliman Work Phone: BD-OFOR-OBUT [place] [address]8414 M Work Phone: 09-15-2020 11:38-0400 Systolic blood pressure 108 mm[Hg] Tata Soliman Work Phone: RU-GRXB-HVGR [place] 10[address] M Work Phone: 09-15-2020 11:38-0400 4 1 Tata Montillap Work Phone: NS-CEGM-TFOM [place] [address] M Work Phone: Comment on above: GRAV 09-15-2020 11:38-0400 2 1 Tata Montillap Work Phone: MH-MTFB-ZASV [place] [address] M Work Phone: Comment on above: PARA 09-15-2020 11:38-0400 0 1 Tata Montillap Work Phone: LK-EYPL-MKUR [place] [address] M Work Phone: Comment on above: [facility] 09-11-2020 11:50-0400 Body height 162.56 cm Tata Guillory [facility] Work Phone: WY-RWZL-PUQF [place] [address] M Work Phone: 09-11-2020 11:50-0400 Body mass index (BMI) [Ratio] 29.93 kg/m2 Tata Montillap Work Phone: FU-IJBK-GGMZ [place] [address] M Work Phone: 09-11-2020 11:50-0400 Body surface area Derived from formula 1.85 m2 Tata Montillap Work Phone: YB-EQEA-CHRB [place] [address] M Work Phone: 09-11-2020 11:50-0400 Body temperature 97.7 [degF] Tata Montillap Work Phone: XH-UUBU-UDEL [place] [address] M Work Phone: 09-11-2020 11:50-0400 Body weight 79.1 kg Tata Guillory [facility] Work Phone: CX-YAQL-NHXZ Araceli [address] M Work Phone: 09-11-2020 11:50-0400 Diastolic blood pressure 64 mm[Hg] Tata Guillory Kolp Work Phone: WI-YNRB-AVEL Araceli 465[address] M Work Phone: 09-11-2020 11:50-0400 Systolic blood pressure 110 mm[Hg] Tata Montillap Work Phone: GU-TPCM-JNHH [place] [address] M Work Phone: 09-11-2020 11:50-0400 4 1 Tata Montillap Work Phone: PK-NYUC-BUMV Araceli 23696 M Work Phone: Comment on above: GRAV 09-11-2020 11:50-0400 2 1 Tata Soliman Work Phone: FQ-SDKJ-PQBK Araceli 96839 M Work Phone: Comment on above: PARA 09-06-2020 11:42-0400 Body height 162.56 cm Tata Soliman Work Phone: NY-EDSU-RYCC Araceli 79286 M Work Phone: 09-06-2020 11:42-0400 Body mass index (BMI) [Ratio] 30.38 kg/m2 Tata Soliman Work Phone: GH-JAYI-RQKS Araceli 64762 M Work Phone: 09-06-2020 11:42-0400 Body surface area Derived from formula 1.86 m2 Tata Soliman Work Phone: EG-OJAN-KXQY Araceli 57423 M Work Phone: 09-06-2020 11:42-0400 Body temperature 97.2 [degF] Taat Montillap Work Phone: OS-CBDE-WZYW [place] 335[address] M Work Phone: 09-06-2020 11:42-0400 Body weight 80.29 kg Tata Soliman Work Phone: JL-XRYV-DOFG [place] 16862 M Work Phone: 09-06-2020 11:42-0400 Diastolic blood pressure 62 mm[Hg] Tata Soliman Work Phone: KY-GANH-JROL Araceli 00050 M Work Phone: 09-06-2020 11:42-0400 Systolic blood pressure 100 mm[Hg] Tata Soliman Work Phone: BC-WHNA-ZPCS Araceli 09194 M Work Phone: 09-06-2020 11:42-0400 4 1 Tata Soliman Work Phone: OQ-FFRW-PUSN Araceli 85527 M Work Phone: Comment on above: GRAV 09-06-2020 11:42-0400 2 1 Tata Soliman Work Phone: WU-BUVH-CMCO Araceli 33197 M Work Phone: Comment on above: PARA 09-06-2020 11:42-0400 0 1 Tata Soliman Work Phone: UQ-OCKW-EOTQ Araceli 53514 M Work Phone: Comment on above: PainScale 08-29-2020 10:44-0400 Body height 162.56 cm Tata Soliman Work Phone: GW-WPXU-MDYO [place] 58453 M Work Phone: 08-29-2020 10:44-0400 Body mass index (BMI) [Ratio] 30.55 kg/m2 Tata Soliman Work Phone: TH-ATTH-YBYZ Araceli 26778 M Work Phone: 08-29-2020 10:44-0400 Body surface area Derived from formula 1.86 m2 Tata Guillory Kolp Work Phone: VG-FJFU-OTGO Araceli 72618 M Work Phone: 08-29-2020 10:44-0400 Body temperature 97.3 [degF] Tata Guillory Kolp Work Phone: IR-LEYV-LLSG [place] 47102 M Work Phone: 08-29-2020 10:44-0400 Body weight 80.74 kg Tata Guillory Kolp Work Phone: NR-ECLD-UZMM Araceli 80089 M Work Phone: 08-29-2020 10:44-0400 Diastolic blood pressure 72 mm[Hg] Tata Montillap Work Phone: WN-CVOU-YSOZ [place] 80447 M Work Phone: 08-29-2020 10:44-0400 Systolic blood pressure 124 mm[Hg] Tata Montillap Work Phone: YR-YKZU-CJCK Araceli 43291 M Work Phone: 08-29-2020 10:44-0400 4 1 Tata Montillap Work Phone: HP-SOJD-RENK [place] 71109 M Work Phone: Comment on above: GRAV 08-29-2020 10:44-0400 2 1 Tata Alvarezrate Kolp Work Phone: GE-YPXI-NDHH [place] 22939 M Work Phone: Comment on above: PARA 08-29-2020 10:44-0400 0 1 Tata Alvarezrate Kolp Work Phone: HW-KZAY-GOEG Araceli 42287 M Work Phone: Comment on above: PainScale 12-20-2019 10:090400 BMI (Body Mass Index) 28.25 kg/m2 Carlota Baaklini [facility] Work Phone: 12-20-2019 10:09-0400 Body Temperature 97.7 [degF] Carlota Baaklini [facility] Work Phone: 12-20-2019 10:09-0400 Body weight 73.48 kg Carlota Baaklini [facility] Work Phone: 12-20-2019 10:09-0400 BP Diastolic 62 mm[Hg] Carlota Baaklini [facility] Work Phone: 12-20-2019 10:09-0400 BP Systolic 108 mm[Hg] Carlota Bajaredlini [facility] Work Phone: 12-20-2019 10:09-0400 BSA (Body Surface Area) 1.78 m2 Carlota Baaklini [facility] Work Phone: 12-20-2019 10:09-0400 Height 161.29 cm Carlota Bajaredlini [facility] Work Phone: 12-20-2019 10:09-0400 Pulse (Heart Rate) 70 /min Carlota Lacyi [facility] Work Phone: 12-20-2019 10:09-0400 Pulse Oximetry 98 % Carlota Baaklini [facility] Work Phone: 12-20-2019 10:09-0400 Respiratory Rate 14 /min Carlota Baaklini [facility] Work Phone: 01-04-2019 16:08-0400 BMI (Body Mass Index) 29.58 kg/m2 Raheel Quesada RS-Lpyzovj-Yxhclio [facility] [address] [facility] Work Phone: 01-04-2019 16:08-0400 Body Temperature 97.8 [degF] Raheel Quesada WJ-Tiuyokx-Znss rin [facility] [address] [facility] Work Phone: 01-04-2019 16:08-0400 Body weight 75.75 kg Raheel Quesada MP-Arailaq-Wdivt in [place] [address] [facility] Work Phone: 01-04-2019 16:08-0400 BP Diastolic 75 mm[Hg] Raheel Quesada IC-Rgbxeao-Indco in [address] Work Phone: 01-04-2019 16:08-0400 BP Systolic 108 mm[Hg] Raheel Quesada MU-Mzeerte-Sljwx in [address] Work Phone: 01-04-2019 16:08-0400 BSA (Body Surface Area) 1.79 m2 Raheel Quesada EX-Wdmuasp-Nleunqx [place] [address] [facility] Work Phone: 01-04-2019 16:08-0400 Height 160.02 cm Raheel Quesada BC-Kealdnt-Ceqnb in [place] [address] [facility] Work Phone: 01-04-2019 16:08-0400 Pulse (Heart Rate) 64 /min Raheel Quesada FC-Jdlzbhj-Jm agrin [place] [address] [facility] Work Phone: 08-19-2018 15:08-0400 BMI (Body Mass Index) 31.39 kg/m2 Carlota Clark [facility] Work Phone: 08-19-2018 15:08-0400 BP Diastolic 68 mm[Hg] Carlota Clark [facility] Work Phone: 08-19-2018 15:08-0400 BP Systolic 90 mm[Hg] Carlota Clark [facility] Work Phone: 08-19-2018 15:08-0400 BSA (Body Surface Area) 1.86 m2 Carlota Hilliard [facility] Work Phone: 08-19-2018 15:08-0400 Height 161.29 cm Carlota Diazs [facility] Work Phone: 08-19-2018 15:08-0400 Pulse (Heart Rate) 78 /min Carlota Diazs [facility] Work Phone: 08-19-2018 15:08-0400 Respiratory Rate 12 /min Carlota Hilliard [facility] Work Phone: 08-19-2018 15:08-0400 Weight 81.65 kg Carlota Hilliard [facility] Work Phone: 08-19-2018 15:08-0400 0 1 Carlota Hilliard [facility] Work Phone: Comment on above: Pain Scale Encounters Encounter Date Encounter Type Care Provider Facility Start: 05-27-2024 End: 05-27-2024 Bamboo flowsheet Goran Cornelia DO Work Phone: [facility] Start: 05-27-2024 End: 05-27-2024 Bamboo flowsheet Goran Cornelia DO Work Phone: [facility] Start: 05-27-2024 End: 05-27-2024 ambulatory GORAN CORNELIA Not Available Start: 05-27-2024 End: 05-27-2024 Office outpatient visit 15 minutes Goran Cornelia DO Work Phone: [facility] Comment on above: Irregular menstrual cycle; Missed menses; Pelvic pain in female Start: 09-01-2023 End: 09-02-2023 ambulatory NO ASSIGNED PCP GENERIC PROVIDER [facility] Start: 01-21-2023 ambulatory AMEENA SANCHEZ [facility] Start: 01-08-2023 ambulatory Ameena Sanchez Facilit y:[id number] Start: 11-05-2021 Office outpatient vi sit 15 minutes Tata Soliman [address] Work Phone: Start: 11-05-2021 Patient encounter procedure Tata Guillory [facility] Work Phone: Start: 11-03-2020 Patient encounter procedure Ttaa Soliman Work Phone: VS-VNZZ-SOET [place] [address] M Work Phone: Start: 10-04-2020 AUDIT Tata Alvarez dwayne Joudran Work Phone: NO-PLSC-OIZY Araceli [address]78[address] M Work Phone: Start: 09-21-2020 End: 09-22-2020 Evaluation and management of inpatient Mabelpaulino Tuttle [facility] L[facility]D 4012 Start: 09-19-2020 Chart Update Tata Alvarez dwayne Jourdan Work Phone: HH-ZPYQ-QMUM [place] [address] M Work Phone: Start: 09-19-2020 Office outpatient vi sit 15 minutes Tata Soliman Work Phone: HO-PEBN-KHOQ Araceli [address]335 M Work Phone: Start: 12-20-2019 Patient encounter procedure Carlota Clark -[facility] Work Phone: Start: 11-22-2019 Patient encounter procedure Carlota Clark [facility] 590 Work Phone: Start: 08-19-2018 Patient encounter procedure Carlota Clark -[facility] Work Phone: Start: 06-12-2018 Patient encounter procedure ASTRID GARZA Facility:[facility] Start: 04-28-2018 Patient encounter procedure Astrid Moona Facility:[facility] Start: 04-28-2018 Patient encounter procedure Carlota Clark -[facility] Work Phone: Start: 03-31-2018 Patient encounter procedure Carlota Clark -[facility] Work Phone: Start: 03-26-2018 Patient encounter procedure [place] Facility:[facility] Start: 07-24-2017 Patient encounter procedure Carlota Clark -[facility] Work Phone: Start: 05-27-2017 [facility] Work Phone: Start: 05-12-2017 Patient encounter procedure Carlota Clark -[facility] Work Phone: Start: 04-22-2017 Patient encounter procedure Carlota Clark -[facility] Work Phone: Start: 12-31-2016 End: 01-01-2017 Ambulatory [facility] Start: 12-26-2016 End: 12-27-2016 Ambulatory CARLOTA LACYI [facility] Start: 12-24-2016 End: 12-25-2016 Ambulatory CARLOTA TAINA [facility] Start: 12-17-2016 End: 12-18-2016 Ambulatory CARLOTA LACYI [facility] Start: 12-05-2016 End: 12-06-2016 Ambulatory CARLOTA LACYI [facility] Start: 12-04-2016 End: 12-05-2016 Ambulatory CARLOTA LACYI [facility] Start: 11-28-2016 End: 11-29-2016 Ambulatory CARLOTA BAGAYATHRII [facility] Start: 11-25-2016 End: 11-26-2016 Ambulatory [facility]LOTA BAJAREDUAB [facility] Start: 11-21-2016 End: 11-22-2016 Ambulatory ANIKA A ZELONIS [facility] Start: 11-19-2016 End: 11-20-2016 Ambulatory [facility] Start: 11-14-2016 End: 11-15-2016 Ambulatory ANIKA CABALLERORAMIN [facility] Start: 11-12-2016 End: 11-13-2016 Ambulatory ANIKA Noe [facility] [place] Procedures Date Procedure Procedure Detail Performing Clinician Start: 05-27-2024 Urine test visual color cmprsn meths Goran Locke DO Work Phone: Start: 01-21-2023 US OB < 14 WEEKS EARLY NO GENERIC PROVIDER Start: 12-20-2019 XR Spine Lumbar and Sacrum 4 views Carlota Clark Start: 12-20-2019 Xray Thoracic Spine 3 View Carlota Clark Start: 11-23-2019 Immunoassay analyte quant radioimmunoassay Carlotajammie Clark Start: 11-23-2019 Lipid panel Carlotajammie chew Start: 11-23-2019 Microsomal antibodies each Carlotajammie Clark Start: 11-22-2019 Assay of free thyroxine Carlotajammie Housei Start: 11-22-2019 Assay of thyroid sti mulating hormone tsh Carlotajammie Housei Start: 11-22-2019 XR Spine Lumbar and Sacrum 4 views Carlota Clark Start: 08-19-2018 Iadna multiple organ isms direct probe tq Carlotajammie Clark Start: 04-28-2018 Antibody screen [place] Comment on above: Order Comment: Blood Bank Service Requested: TYPE AND SCREEN Is patient taking DES? Has patient had a transplant? Performed By: #### B TS #### [facility] [address] [place] [address] Contraceptives Carlota House i History of Umbilical Hernia Repair Carlota Clark Plan of Treatment Date Care Activity Detail Author Start: 06-24-2024 End: 06-24-2024 Patient encounter procedure 06/24/2024 10:10 AM EST Office Visit [facility] [address] [place] [address] Goran Locke, DO [address] [place] [address] [facility] Start: 06-01-2024 End: 06-01-2024 Professional / ancillary services management 06/01/2024 8:00 AM EST Ancillary Procedure [facility] [address] [address] [address] [place] [address] [facility] Start: 05-27-2024 End: 05-27-2025 DHEA DHEA Lab Routine Irregular menstrual cycle Pelvic pain in female Expected: 05/27/2024 (Approximate), Expires: 05/27/2025 [facility] Comment on above: Expected: 05/27/2024 (Approximate), Expires: 05/27/2025 Start: 05-27-2024 End: 05-27-2025 US Pelvis US Pelvis w/ TV Imaging Routine Irregular menstrual cycle Pelvic pain in female Expected: 05/27/2024, Expires: 05/27/2025 [facility] Comment on above: Expected: 05/27/2024 , Expires: 05/27/2025 Start: 09-22-2020 Normal spontaneous vaginal delivery Normal spontaneous vaginal delivery Date: 22-Sep-2020 [facility] Start: 12-20-2019 XR Spine Lumbar and Sacrum 4 views Xray Lumbosacral Spine Min 4 View [facility] Work Phone: Start: 12-20-2019 Xray Thoracic Spine 3 View [facility] Work Phone: CBC W Auto Differential panel - Blood CBC and differential Lab Routine Irregular menstrual cycle Pelvic pain in female Ordered: 05/27/2024 [facility] Comment on above: Ordered: 05/27/2024 DHEA-sulfate DHEA-sulfate Lab Routine Irregular menstrual cycle Pelvic pain in female Ordered: 05/27/2024 [facility] Comment on above: Ordered: 05/27/2024 Follicle stimulating hormone Follicle stimulating hormone Lab Routine Irregular menstrual cycle Pelvic pain in female Ordered: 05/27/2024 [facility] Comment on above: Ordered: 05/27/2024 hCG, quantitative, hCG, quantitative, Lab Routine Irregular menstrual cycle Pelvic pain in female Ordered: 05/27/2024 [facility] Work Phone: Comment on above: Ordered: 05/27/2024 Hemoglobin A1c/Hemoglobin.total in Blood Hemoglobin A1c Lab Routine Irregular menstrual cycle Pelvic pain in female Ordered: 05/27/2024 [facility] Comment on above: Ordered: 05/27/2024 Luteinizing hormone Luteinizing hormone Lab Routine Irregular menstrual cycle Pelvic pain in female Ordered: 05/27/2024 [facility] Comment on above: Ordered: 05/27/2024 Thyrotropin [Units/volume] in Serum or Plasma TSH Lab Routine Irregular menstrual cycle Pelvic pain in female Ordered: 05/27/2024 [facility] Comment on above: Ordered: 05/27/2024 Thyroxine (T4) free [Mass/volume] in Serum or Plasma T4, free Lab Routine Irregular menstrual cycle Pelvic pain in female Ordered: 05/27/2024 [facility] Comment on above: Ordered: 05/27/2024 [facility] Work Phone: NEGATED: Highlighted row has been ruled out! Planned Goals not documented [facility] Work Phone: Immunizations Immunization Date Immunization Notes Care Provider Kiesha moffett 11-03-2013 tetanus toxoid, redu alina diphtheria toxoid, and acellular pertussis vaccine, adsorbed; Translations: [Tdap (Adacel)] Carlota Clark [facility] Work Phone: Comment on above: Series: 02-01-2013 influenza, seasonal, injectable; Translations: [Flulaval INJ] Carlota Clark [facility] Work Phone: Comment on above: Series: Payers Date Payer Category Payer [employer] [id number] 2023 () [id number] 2023 [employer] ( [employer] others) [id number] 2016 [employer] ( [employer] others) [id number] 1989 Unknown [id number] 1989 Unknown [id number] 1989 Unknown [id number] 1989 Unknown [id number] 1989 Unknown [id number] Unknown [id number] Unknown [id number] Unknown Social History Date Type Detail Facility - Former smoker [facility] [employer] Work Phone: Occupation: Occupation: [employer] [place] [address] M Work Phone: Comment on above: rube tuesdays; Tobacco smoking consumption unknown [facility] Start: 1990 Sex assigned at Not on file [facility] Gender identity Not on file [facility] are Functional Status Date Assessment Result Facility Functional observable [facility] NEGATED: Highlighted row Functional performance Functional status health issues are not documented Disease [facility] [employer] Work Phone: Mental Status Date Assessment Result Facility 09-22-2020 Cognitive functi ons [id number] [facility] NEGATED: Highlighted row Cognitive function [Interpretation] Cognitive status health issues are not documented Disease [email or web address] Work Phone: History of Present illness Narrative 05-27-2024 Cora Cannon LPN - 05/27/2024 10:10 AM EST Note Date & Type Note Facility 05-27-2024 History of Presen t illness Narrative Reason for Appointment: Patient ID: Dyan Briones is a 34 y.o. female who presents for Menstrual Problem Patient presents today for Consult appointment. MEDICATIONS No current outpatient medications ALLERGIES Allergies Allergen Reactions Bacid Levonorgestrel-Ethinyl Estrad Soybean-Containing Drug Products PROBLEMS Active Ambulatory Problems Diagnosis Date Noted SGA (small for gestational age) 05/05/2023 Second trimester 05/05/2023 Resolved Ambulatory Problems Diagnosis Date Noted No Resolved Ambulatory Problems No Additional Past Medical History HISTORY PAST MEDICAL HISTORY SOCIAL HISTORY History reviewed. No pertinent past medical history. Social History Tobacco Use Smoking status: Not on file Smokeless tobacco: Not on file Substance Use Topics Alcohol use: Not on file Drug use: Not on file FAMILY HISTORY No family history on file. SURGICAL HISTORY History reviewed. No pertinent surgical history. REVIEW OF SYSTEMS Review of Systems: Review of Systems Genitourinary: Positive for menstrual problem and pelvic pain. All other systems reviewed and are negative. OBJECTIVE Objective: Physical Exam Constitutional: Appearance: Normal appearance. She is well-developed. Cardiovascular: Rate and Rhythm: Normal rate and regular rhythm. Pulmonary: Effort: Pulmonary effort is normal. Breath sounds: Normal breath sounds. Abdominal: General: Bowel sounds are normal. There is no distension. Palpations: Abdomen is soft. Tenderness: There is no abdominal tenderness. There is no guarding or rebound. Musculoskeletal: General: No swelling. Normal range of motion. Right lower leg: No edema. Left lower leg: No edema. Neurological: Mental Status: She is alert and oriented to person, place, and time. Skin: General: Skin is warm and dry. Psychiatric: Mood and Affect: Mood normal. Behavior: Behavior normal. Vitals and nursing note reviewed. Exam conducted with a ultrasound technologist present. Vitals: There is no height or weight on file to calculate BMI. BP: 100/64 Patient's last menstrual period was 05/01/2024. ASSESSMENT & PLAN ICD-10-CM 1. Irregular menstrual cycle N92.6 2. Missed menses N92.6 POCT , urine manually resulted Patient presents today for consult in regard to irregular cycles and pain. Patient voiced that she has had a cycle since age 9 and has never been irregular. Patient voiced that she recently had a massage and that day and after she had severe pain and used heating pad. Patient voiced she had her child in July and her first cycle was only 4 days long and then 2 weeks later she had again. Patient voiced that she went 4 months before this started again. Patient is currently breast feeding and this has never happened with any of her other children. Discussed possible causes with patient and use of OCP to regulate cycle if needed. Patient desires to have US and labs drawn first prior to medication management. Patient given orders and will return to clinic in 4 weeks for Annual, review labs and review US. Documented by Cora Cannon LPN on behalf of: Goran Locke DO documented in this encounter [facility] History of Present illness Narrative 07-11-2017 Note Date & Type Note Facility 07-11-2017 History of Present illness Narrative Dyan Briones is a 31F with s/p open incarcerated epigastric hernia repair 07/11/17 presenting to clinic for incisional pain.She had a stitch abscess in 2018 that was removed in office. She had another abscess in 2020 while 8 mos with attempted removal but unable to due to discomfort. The abscess is painful when touched, minimal discharge, no warmth, no skin changes. She denies fever. [facility] Work Phone: History of Present illness Narrative 07-11-2017 Note Date & Type Note Facility 07-11-2017 History of Present illness Narrative Dyan Briones is a 31F with s/p open incarcerated epigastric hernia repair 07/11/17 presenting to clinic for incisional pain.She had a stitch abscess in 2018 that was removed in office. She had another abscess in 2020 while 8 mos with attempted removal but unable to due to discomfort. The abscess is painful when touched, minimal discharge, no warmth, no skin changes. She denies fever. [facility] Work Phone: Evaluation note <item> Note Date & Type Note Facility Evaluation note Constitutional: aler t, orientedRespiratory/Thorax: normal effortExtremities: no swellingPsychological: appropriate affect [facility] Evaluation note Note Date & Type Note Facility Evaluation note Diagnosis Irregular menstrual cycle Missed menses Pelvic pain in female Unspecified symptom associated with female genital organs documented in this encounter [facility] Hospital Discharge instructions <item><item> Note Date & Type Note Facility Hospital Discharge instructions Activity:activity as tolerated. May shower. No pushing, pulling, or lifting objects greater than 10 pounds.Call Provider If:Breathing faster than normal. Breathing harder than normal or having retractions. Fever of 100.4 F (38 C) or higher. Temperature is greater than 102 degrees. Chills. Any new concerning symptoms. [facility] Summary Purpose Family History Unknown Family Member Name Dates Details Family history of Urinary Tr act Infection Comments:Family History Status:Active Family history of Diabetes Yulissa rivers(V18.0) Comments:Family History Status:Active Family history of Leukemia(V 16.6) Comments:Family History Status:Active Brother Name Dates Details Family history of Leukemia(V 16.6) Status:Active Unknown Family Member Name Dates Details Family history of Urinary Tr act Infection Comments:Family History Status:Active Family history of Diabetes Yulissa rivers(V18.0) Comments:Family History Status:Active Family history of Leukemia(V 16.6) Comments:Family History Status:Active Brother Name Dates Details Family history of Leukemia(V 16.6) Status:Active Unknown Family Member Name Dates Details Urinary Tract Infection: Fam fabien History Status:Active Diabetes Mellitus: Family Hi story(V18.0) Status:Active Leukemia: Family History(V16 .6) Status:Active Leukemia: Brother(V16.6) Status:Active Unknown Family Member Name Dates Details Urinary Tract Infection: Fam fabien History Status:Active Diabetes Mellitus: Family Hi story(V18.0) Status:Active Leukemia: Family History(V16 .6) Status:Active Leukemia: Brother(V16.6) Status:Active Unknown Family Member Name Dates Details Urinary Tract Infection: Fam fabien History Status:Active Diabetes Mellitus: Family Hi story(V18.0) Status:Active Leukemia: Family History(V16 .6) Status:Active Leukemia: Brother(V16.6) Status:Active Unknown Family Member Name Dates Details Urinary Tract Infection: Fam fabien History Status:Active Diabetes Mellitus: Family Hi story(V18.0) Status:Active Leukemia: Family History(V16 .6) Status:Active Leukemia: Brother(V16.6) Status:Active Unknown Family Member Name Dates Details Urinary Tract Infection: Fam fabien History Status:Active Diabetes Mellitus: Family Hi story(V18.0) Status:Active Leukemia: Family History(V16 .6) Status:Active Leukemia: Brother(V16.6) Status:Active Unknown Family Member Name Dates Details Urinary Tract Infection: Fam fabien History Status:Active Diabetes Mellitus: Family Hi story(V18.0) Status:Active Leukemia: Family History(V16 .6) Status:Active Leukemia: Brother(V16.6) Status:Active Advance Directives No Advanced Directives Records FoundNo Advanced Directives Records FoundNo Advanced Directives Records FoundNo Advanced Directives Records FoundNo Advanced Directives Records FoundNo Advanced Directives Records FoundNo Advanced Directives Records FoundNo Advanced Directives Records FoundNo Advanced Directives Records FoundNo Advanced Directives Records FoundNo Advanced Directives Records Found Chief Complaint * 6 week PPV visit today * Boy- Shon 8lbs 11oz * Breast feeding * Mom and baby doing well. Additional Source Comments INFORMATION SOURCE (unrecogn ized section and content) DATE CREATED AUTHOR 10/15/2017 [facility] DATE CREATED AUTHOR AUTHOR'S ORGANIZ ATION 05/09/2018 [facility] DATE CREATED AUTHOR AUTHOR'S ORGANIZ ATION 06/10/2018 [facility] DATE CREATED AUTHOR AUTHOR'S ORGANIZ ATION 12/04/2018 [facility] DATE CREATED AUTHOR AUTHOR'S ORGANIZ ATION 01/05/2019 [employer] DATE CREATED AUTHOR AUTHOR'S ORGANIZ ATION 06/25/2020 [facility] DATE CREATED AUTHOR AUTHOR'S ORGANIZ ATION 07/23/2021 [facility] DATE CREATED AUTHOR AUTHOR'S ORGANIZ ATION 11/09/2021 [employer] DATE CREATED AUTHOR AUTHOR'S ORGANIZ ATION 01/10/2023 [facility] DATE CREATED AUTHOR AUTHOR'S ORGANIZ ATION 09/06/2023 [facility] DATE CREATED AUTHOR AUTHOR'S ORGANIZ ATION 05/29/2024 [facility] EPIC <item> Privacy Markings (unrecogniz ed section and content) Section Author: Shadia Monson PROHIBITION ON REDISCLOSURE OF CONFIDENTIAL INFORMATION This notice accompanies a disclosure of information concerning a client made to you with the consent of such client. Reason for Visit (unrecogniz ed section and content) Reason Comments Menstrual Problem FOR RECORDS PERTAINING TO PATIENTS WHO ARE OR HAVE BEEN ENROLLED IN A CHEMICAL DEPENDENCY/SUBSTANCEABUSE PROGRAM, SOME INFORMATION MAY BE OMITTED. This clinical summary was aggregated from multiple sources. Caution should be exercised in using it in the provision of clinical care. This summary normalizes information from multiple sources, and as a consequence, information in this document may materially change the coding, format and clinical context of patient data. In addition, data may be omitted in some cases. CLINICAL DECISIONS SHOULD BE BASED ON THE PRIMARY CLINICAL RECORDS. [employer] [facility] provides no warranty or guarantee of the accuracy or completeness of information in this document.
[2024-06-01 09:33] LABS: Estimated Average Glucose 105 mg/dL; Glycohemoglobin A1C 5.3 % (4.5-6.2)
[2024-06-01 09:57] LABS: Thyroid Stimulating Hormone 1.492 uIU/mL (0.358-3.740)
[2024-06-01 10:01] LABS: HCG Quantitative <1 mIU/mL
[2024-06-01 10:31] LABS: Free T4 0.97 ng/dL (0.76-1.46)
[2024-06-02 04:07] LABS: Luteinizing Hormone(LH) 1.8 mIU/mL (.)
== END 2024-06-01 08:53 | disposition home or self-care (01) ==
PROVIDERS: Visit Provider Obstetrics & Gynecology
DX: N92.6 Irregular menstruation, unspecified (principal); R10.2 Pelvic and perineal pain
CPT/HCPCS: 36415; 82626; 82627; 83001; 83002; 83036; 84439; 84443; 84702; 85025